=== PATIENT | female | born 1960 ===

== ENCOUNTER → 2022-02-24 | Outpatient (CLI) | payer BC | LOC: MC.RAD 07:00 | DX: Z12.31 Encounter for screening mammogram for malignant neoplasm of breast (principal) ==

== ENCOUNTER 2022-03-09 09:25 | Day surgery (SDC) | payer BC ==
[~2022-03-09] VITALS: Ht 160 cm; Wt 102.7 kg
[2022-03-09] MEDS ORDERED: DESYREL 100MG100 MG PO (09:41)
[2022-03-09] MEDS ORDERED: EFFEXOR 3737.5 MG/TA PO (09:41)
[2022-03-09] MEDS ORDERED: LIPITOR20 MG PO (09:42)
[2022-03-09 09:53] VITALS: BP 116/73; PULSE 74; TEMP 99.7
[2022-03-09 11:10] VITALS: BP 122/78; PULSE 72; TEMP 97.8
[2022-03-09 11:25] VITALS: BP 106/80; PULSE 60
[2022-03-09 11:40] VITALS: BP 114/64; PULSE 59
--- NOTE | 2022-03-09 12:00 | NUR ---
1110 PT RETURNED TO [facility] VIA CART, TRANSFERED TO CHAIR WITH RN ASSIST. ALERT AND ORIENTED. MONITORS ATTACHED, INTERVALS AND ALARMS SET. VSS. PT DENIES PAIN OR NAUSEA. COKE AND MUFFIN PROVIDED. CALL LIGHT IN REACH. D.I.L AT BEDSIDE. 1125 VSS. PT TOLERATING FOOD AND DRINK WELL. 1140 VSS. PT DENIES DISCOMFORT. REVIEWED DISCHARGE INSTRUCTIONS AND EDUCATION PACKET, ANSWERED ALL QUESTIONS. PER DR. BUCK PT IS TO RETURN FOR F/U IN 5 YEARS, PT VERBALIZED UNDERSTANDING. IV REMOVED WITHOUT COMPLICATIONS. PT ALLOWED TO DRESS. 1200 PT TRANSFERED VIA WHEELCHAIR TO PERSONAL VEHICLE TO BE DRIVEN HOME BY D.I.L.
== END 2022-03-09 12:00 | disposition home or self-care (01) ==
LOC: SDCO 09:25
DX: Z12.11 Encounter for screening for malignant neoplasm of colon (principal); K57.30 Diverticulosis of large intestine without perforation or abscess without bleeding; Z80.0 Family history of malignant neoplasm of digestive organs
CPT/HCPCS: J2704; J7120

== ENCOUNTER → 2023-03-29 | Outpatient (CLI) | payer BC ==
[~2023-03-29] MED LIST: DESYREL 100MG100 MG PO; EFFEXOR 3737.5 MG/TA PO; LIPITOR20 MG PO
== END ==
LOC: MC.RAD 13:51
DX: Z12.31 Encounter for screening mammogram for malignant neoplasm of breast (principal); N64.89 Other specified disorders of breast